=== PATIENT | male | born 1975 | race American Indian/Alaskan Native ===

== ENCOUNTER 2017-09-27 13:38 | Outpatient (CLI) | payer OTHER ==
[2017-09-27] MEDS ORDERED: PROVENTIL IH ONE (14:14)
== END 2017-09-27 13:39 | disposition home or self-care (01) ==
LOC: PF 13:38
PROVIDERS: ATTEND Internal Medicine
DX: J44.9 Chronic obstructive pulmonary disease, unspecified (principal); K46.9 Unspecified abdominal hernia without obstruction or gangrene; L98.499 Non-pressure chronic ulcer of skin of other sites with unspecified severity; Z87.891 Personal history of nicotine dependence
CPT/HCPCS: 94060; 94640